=== PATIENT | female | born 1970 | race Caucasian/White ===

== ENCOUNTER 2022-02-13 19:09 | Inpatient (IN) | payer OTHER ==
[~2022-02-13] VITALS: Ht 160 cm; Wt 51.2 kg
[~2022-02-13 19:09] MED LIST: ATEN25 PO; Benadryl 50 mg50 MG PO; Betamethasone V15 G1 TP; Keflex500 MG PO; LORA1 PO; METO100ER PO; METPRE4DP PO; Norco 5-325 Ta1 EACH PO; RXHYDACE PO; RXPROM25 PO; TRAM50 PO
[2022-02-13 19:35] LABS: Calcium, Ionized (POC) 1.09 mmol/L (1.10-1.46); Chloride (POC) 99 mmol/L (98-108); Creatinine (POC) 2.7 mg/dL (0.6-1.0); Glucose (ISTAT POC) 203 mg/dL (70-99); Hemoglobin (POC) 20.1 g/dL (12.0-16.0); Potassium (POC) 5.1 mmol/L (3.5-5.5); Sodium (POC) 132 mmol/L (135-148); Total CO2 (POC) 21 mmol/L (21-32)
[2022-02-13 19:40] LABS: Hematocrit 52.7 % (33.0-51.0); Hemoglobin 18.7 g/dL (11.5-16.0); Mean Corpuscular HGB 37.1 pg (26.0-34.0); Mean Corpuscular HGB Conc 35.5 g/dL (31.5-36.5); Mean Corpuscular Volume 105 fL (80-100); Mean Platelet Volume 9.5 fL (9.1-12.4); Platelet Count 421 K/mm3 (150-400); RDW Coefficient Variation 12.3 % (11.7-14.2); Red Blood Cell Count 5.04 M/mm3 (3.80-5.20); White Blood Cell Count 26.17 K/mm3 (4.00-11.30)
[2022-02-13 19:59] LABS: Magnesium, Blood 2.3 mg/dL (1.6-2.4)
[2022-02-13 20:10] LABS: PCO2 Arterial 23.4 mmHg (35-45); pH Blood Arterial 7.41 (7.35-7.45)
[2022-02-13 20:11] LABS: PO2 Arterial 103 mmHg (80-100)
[2022-02-13 20:27] LABS: Albumin, Blood 3.9 g/dL (3.4-5.0); Albumin/Globulin Ratio 0.8 (0.8-1.8); Bilirubin, Total 0.6 mg/dL (0.1-1.0); Bun/Creatinine Ratio 19.9 (12.0-20.0); Calcium, Blood 9.8 mg/dL (8.5-10.1); Creatinine, Blood 2.31 mg/dL (0.40-1.00); Globulin, Blood 4.9 g/dL (2.2-4.0); Potassium, Blood 4.4 mmol/L (3.5-5.5); Total Protein, Blood 8.8 g/dL (6.4-8.2)
[2022-02-13 20:32] LABS: Influenza A, PCR NEGATIVE (NEGATIVE); Influenza B, PCR NEGATIVE (NEGATIVE); Resp Syncytial Virus, PCR NEGATIVE (NEGATIVE); SARS-Cov-2 (COVID-19) PCR, MMC NEGATIVE (NEGATIVE)
[2022-02-13 20:32] LABS: BASOPHILS PERCENT MAN 0 % (0-2); EOSINOPHILS PERCENT MAN 0 % (0-6); LYMPHOCYTES ABSOLUTE MAN 1.83 K/mm3 (0.84-5.20); LYMPHOCYTES PERCENT MAN 7 % (21-46); MONOCYTES ABSOLUTE MAN 1.04 K/mm3 (0.16-1.47); MONOCYTES PERCENT MAN 4 % (4-13); NEUTROPHILS ABSOLUTE MAN 23.29 K/mm3 (1.96-9.15); SEG NEUTROPHILS PERCENT MAN 89 % (41-73); TOTAL CELLS COUNTED 100
[2022-02-13 21:17] LABS: Ethanol (Alcohol), Blood, Med <3 mg/dL
[2022-02-13 22:28] LABS: Source, Urine Clean Catch
[2022-02-13 22:37] LABS: Appearance, Urine Cloudy (Clear); Blood, Urine 5+ (Neg); Color, Urine Amber (P-Yellow); Glucose Qualitative, Urine 1+ (Neg); Ketones, Urine 1+ (Neg); Leukocyte Esterase, Urine 2+ (Neg); Nitrite, Urine Pos (Neg); Protein, Urine 4+ (Neg); Urobilinogen, Urine 1+ (Normal)
[2022-02-13 22:52] LABS: U Amphetamine Screen Not Detected; U Barbituate Screen Not Detected; U Benzodiazapine Screen Not Detected; U Buprenorphine Screen Not Detected; U Cannabinoids Screen DETECTED; U Cocaine Screen Not Detected; U Methadone Screen Not Detected; U Methamphetamine Screen Not Detected; U Opiates Screen Not Detected; U Oxycodone Screen Not Detected; U Phencyclidine Screen Not Detected; U Propoxyphene Screen Not Detected
[2022-02-13 22:53] LABS: Bilirubin, Urine 1+ (Neg)
[2022-02-13 22:58] LABS: Amorphous Mod (0-Heavy); Granular Casts 0-2 /lpf (0)
[2022-02-13 22:59] LABS: International Normalized Ratio 0.99; Prothrombin Time Results 10.4 Sec (9.7-11.5)
[2022-02-13 22:59] LABS: Bacteria Many /hpf; Renal Epithelial Rare /hpf (0-Rare); Squamous Epithelial Cells Few /hpf (Few)
[2022-02-13 23:21] LABS: CHOL/HDL RATIO 3.8; Cholesterol 260 mg/dL (50-200); HDL Cholesterol 68 mg/dL (>39); LDL/HDL RATIO 2.1; Low Density Lipoprotein Chol 143 mg/dL (0-110); Triglycerides 246 mg/dL (30-160); Very Low Density Lipoprot Chol 49 mg/dL (6-32)
[2022-02-14 01:47] LABS: BASOPHILS ABSOLUTE AUTO 0.03 K/mm3 (0.00-0.23); BASOPHILS PERCENT AUTO 0 % (0-2); EOSINOPHILS ABSOLUTE AUTO 0.08 K/mm3 (0.00-0.68); EOSINOPHILS PERCENT AUTO 0 % (0-6); Hematocrit 44.9 % (33.0-51.0); Hemoglobin 16.6 g/dL (11.5-16.0); IMMATURE GRAN ABSOLUTE AUTO 0.12 K/mm3 (0.00-0.10); IMMATURE GRAN PERCENT AUTO 1 % (0-1); LYMPHOCYTES ABSOLUTE AUTO 1.22 K/mm3 (0.84-5.20); LYMPHOCYTES PERCENT AUTO 6 % (21-46); MONOCYTES ABSOLUTE AUTO 0.97 K/mm3 (0.16-1.47); MONOCYTES PERCENT AUTO 5 % (4-13); Mean Corpuscular HGB 37.6 pg (26.0-34.0); Mean Corpuscular Volume 102 fL (80-100); Mean Platelet Volume 9.3 fL (9.1-12.4); NEUTROPHILS ABSOLUTE AUTO 18.14 K/mm3 (1.96-9.15); NEUTROPHILS PERCENT AUTO 88 % (41-73); Platelet Count 289 K/mm3 (150-400); RDW Coefficient Variation 12.1 % (11.7-14.2); RDW Standard Deviation 45.8 fL (35.1-46.3); Red Blood Cell Count 4.41 M/mm3 (3.80-5.20); White Blood Cell Count 20.56 K/mm3 (4.00-11.30)
[2022-02-14 02:02] LABS: International Normalized Ratio 1.09; Prothrombin Time Results 11.4 Sec (9.7-11.5)
[2022-02-14 02:17] LABS: Albumin, Blood 3.3 g/dL (3.4-5.0); Albumin/Globulin Ratio 0.8 (0.8-1.8); Bilirubin, Total 0.4 mg/dL (0.1-1.0); Bun/Creatinine Ratio 24.3 (12.0-20.0); Calcium, Blood 8.8 mg/dL (8.5-10.1); Creatinine, Blood 2.14 mg/dL (0.40-1.00); Globulin, Blood 3.9 g/dL (2.2-4.0); Potassium, Blood 4.7 mmol/L (3.5-5.5); Total Protein, Blood 7.2 g/dL (6.4-8.2)
--- NOTE | 2022-02-14 04:15 | NUR ---
NO SIGNINFICANT EVENTS SINCE ADMIT. HEP GTT STARTED PER ORDER. VSS. NO CHEST PAIN OR PALPITATIONS. HR NOW IN THE 110S-120S.
--- NOTE | 2022-02-14 11:29 | NUR ---
AM NOTE: PT A&Ox4, COOPERATIVE W/CARE, ANSWERS QUESTIONS APPROPRIATELY. O2 SATS >92% ON RA, PT DENIES SOB AT REST. SIN TACH CONTINUES ON MONITOR W/RATE 100-120s AT REST, PT DENIES CHEST PAIN OR FEELINGS OF PALPITATIONS AT REST. HEP INFUSING PER ORDERS. DR SANCHES NOTIFIED OF CARDIOLOGY CONSULT, TO/FROM BEDSIDE. ECHO COMPLETED AT BEDSIDE. CIWA SCORES NEGATIVE THUS FAR. PT REPORTS 30 LB WEIGHT LOSS OVER THIS PAST YEAR R/TO STRESS F/THE LOSS OF FAMILY MEMBERS AND A FRIEND. BEDREST CONTINUES. REPORT GIVEN TO RAMSES FERNANDES TO ASSUME CARE OF PT.
--- NOTE | 2022-02-14 11:35 | NUR ---
ASSUMED CARE OF PT, REPORT FROM LONG PEARCE PT. REMAINS ALERT AND ORIENTED. REPOSITIONING SELF IN BED FOR COMFORT AT THIS TIME. CALL LIGHT IN REACH.
--- NOTE | 2022-02-14 12:59 | NUR ---
UP TO BEDSIDE CHAIR PT. UP TO BEDSIDE TOILET WITH STAND BY ASSIST. PT REPORTS FEELING STIFF BUT NO LONGER DIZZY. ABLE TO AMBULATE TO RECLINER. HR INCREASED TO 140S-150S WITH AMBULATION HOWEVER PT DENIES ANY CHEST PAIN OR PRESSURE AT THIS TIME. PAIN MEDICATION ADMIN PER PT REQUEST AND LUNCH TRAY PROVIDED WELL. PT. CALL LIGHT IN REACH, INSTRUCTED PT TO CALL BEFORE ATTEMPTING TO MOVE OUT OF RECLINER DUE TO LINES/ CORDS/ WEAKNESS AND FALL RISK. PT VERBALIZED UNDERSTANDING.
[2022-02-14 13:55] LABS: Adenovirus Not Detected (NOT DETECT); Bordetella pertussis Not Detected (NOT DETECT); Chlamydophila pneumoniae Not Detected (NOT DETECT); Coronavirus 229E Not Detected (NOT DETECT); Coronavirus HKU1 Not Detected (NOT DETECT); Coronavirus NL63 Not Detected (NOT DETECT); Coronavirus OC43 Not Detected (NOT DETECT); Human Metapneumovirus Not Detected (NOT DETECT); Human Rhinovirus/Enterovirus Not Detected (NOT DETECT); Influenza A/2009-H1 Not Detected (NOT DETECT); Influenza A/H1 Not Detected (NOT DETECT); Influenza A/H3 Not Detected (NOT DETECT); Influenza B Not Detected (NOT DETECT); Mycoplasma pneumoniae Not Detected (NOT DETECT); Parainfluenza Virus 1 Not Detected (NOT DETECT); Parainfluenza Virus 2 Not Detected (NOT DETECT); Parainfluenza Virus 3 Not Detected (NOT DETECT); Parainfluenza Virus 4 Not Detected (NOT DETECT); Respiratory Syncytial Virus Not Detected (NOT DETECT); SARS-Cov-2 (COVID-19), BioFire Not Detected (NOT DETECT)
--- NOTE | 2022-02-14 17:15 | NUR ---
PT TRANSFERRED TO PCU AT THIS TIME. ALL BELONGINGS TAKEN WITH PT. REPORT TO WOJCIECH PEARCE. VSS UPON TRANSFER.
--- NOTE | 2022-02-14 17:36 | NUR ---
ASSUMPTION OF CARE: PT ARRIVED TO UNIT AT 1715. ABLE TO TRANSFER VIA SBA FROM WHEELCHAIR TO BED. ALERT AND ORIENTED X4, ABLE TO FOLLOW COMMANDS AND MAKE NEEDS KNOWN, AFEBRILE, HR ST 120'S, BP SLIGHTLY ELEVATED 127/109, SATING >95% ON RA. RESPIRATIONS EVEN AND UNLABORED. DISCLORATION NOTED ON FINGERS AND TOES, PT STATES THIS IS BASELINE. HEPARING GTT @17 UNITS/KG/HR IN R. AC, NS GTT @100ML/HR GTT IN LICHA. PT ORIENTED TO CALL LIGHT SYSTEM. BED IN LOW, CALL LIGHT IN REACH, FAMILY AT BEDSIDE, WILL REPORT TO ONCOMING RN.
--- NOTE | 2022-02-15 02:05 | NUR ---
UPDATE PT HAVING INCREASE IN NAUSEA. HR INCREASING AND SUSTAINING IN 120'S-130'S ST. PHYSICIAN NOTIFIED. ORDERS PLACED PER PHYSICIAN. PLAN TO TREAT NAUSEA AT THIS TIME. WILL CONT TO MONITOR HR AND INFORM PHYSICIAN IF NO IMPROVEMENT AFTER NAUSEA MEDICATIONS GIVEN.
[2022-02-15 02:36] LABS: Hematocrit 38.3 % (33.0-51.0); Hemoglobin 13.6 g/dL (11.5-16.0); Mean Corpuscular HGB 37.7 pg (26.0-34.0); Mean Corpuscular HGB Conc 35.5 g/dL (31.5-36.5); Mean Corpuscular Volume 106 fL (80-100); Mean Platelet Volume 9.4 fL (9.1-12.4); Platelet Count 208 K/mm3 (150-400); Red Blood Cell Count 3.61 M/mm3 (3.80-5.20); White Blood Cell Count 12.78 K/mm3 (4.00-11.30)
[2022-02-15 03:03] LABS: Albumin, Blood 2.8 g/dL (3.4-5.0); Albumin/Globulin Ratio 0.9 (0.8-1.8); Bilirubin, Total 0.3 mg/dL (0.1-1.0); Bun/Creatinine Ratio 22.8 (12.0-20.0); Calcium, Blood 8.1 mg/dL (8.5-10.1); Creatinine, Blood 2.98 mg/dL (0.40-1.00); Globulin, Blood 3.2 g/dL (2.2-4.0); Potassium, Blood 4.2 mmol/L (3.5-5.5)
--- NOTE | 2022-02-15 05:48 | NUR ---
UPDATE DR. DEL RIO AT BEDSIDE TO ASSESS PT. PT CONT TO BE TACHYCARDIC IN 120'S TO 130'S. PT CURRENLTY IN SINUS TACH. PLAN TO CONT TO MONITOR AT THIS TIME. BP STABLE. PT REPORTS REGLAN IMPROVED NAUSEA. WILL CONT TO MONITOR.
--- NOTE | 2022-02-15 06:00 | NUR ---
SHIFT SUMMARY PT ALERT AND ORIENTED X 4. HR TACHYCARDIC, PHYSICIAN NOTIFIED,SEE NOTES. BP STABLE. CIWA NEGATIVE T/O SHIFT. PT ABLE TO TURN SELF IN BED NEEDED. NO CP OR PRESSURE. OXYGEN SATURATION MAINTAINED ABOVE 92% ON RA. CALL LIGHT WITHIN REACH. WILL CONT TO MONITOR UNTIL REPORT GIVEN TO DAYSHIFT RN.
--- NOTE | 2022-02-15 07:28 | NUR ---
Bedside report received from RAMSES Kirkpatrick. Pt is awake, alert and oriented. No c/o acute pain/discomfort at this time. She was just medicated for nausea as she vomited "bile-colored" liquid per report. She is lying on her right side in bed, in no apparent distress/discomfort at this time. Sinus tachycardia 121 bpm by telemetry monitoring.
--- NOTE | 2022-02-15 09:27 | NUR ---
5 mg IV metoprolol given for heart rate persistently 120 bpm, per Dr. Carrizales during rounding at this time. Heart rate remains sinus tachycardia, 112 bpm, blood pressure stable. PT reports no dizzyness, lightheadedness, no chest discomfort.
--- NOTE | 2022-02-15 11:40 | NUR ---
Pt was ambulatory in the room, to the bathroom, and sitting on side of bed with stable blood pressure, and heart rate 110-117. Continues to deny any symptoms. No c/o nausea, and no bowel movement for over 24 hours. GI panel order dc'd per protocol (over 24 hours without BM, DC order).
--- NOTE | 2022-02-15 12:26 | NUR ---
Pt has been ambulatory in the room, doing her toilette. She has been, she says, frustrated by the IV machine beeping when she bends her elbow so frequently. At this time, she is taking care of her hair, teeth, and clothing while standing at the bedside. IV machine is no longer beeping, but she is agitated and says that she wants it to be "fixed". I explained to her that I cannot disconnect the IVs as she is on continuous fluids and heparin gtt. I encouraged her to complete her self care, and we will take care of the machine alarms.
--- NOTE | 2022-02-15 13:17 | NUR ---
Pt is calm, cooperative, and no longer agitated. States that she was able to complete her toilette and has had enough to eat for lunch. She is sitting up in bed, male visitor at the bedside, talking with her. Informed them that lab would be drawing the labs around 2 pm. NS infusing at 100cc/hour right AC, and heparin gtt infusing left upper arm at 17 u/kg/hour. Vital signs taken, stable.
--- NOTE | 2022-02-15 14:17 | NUR ---
Pt has been having intermittent cyanosis of fingers and toes, and at this time she is also have cyanosis of her knees. She is requesting nicotine patch, which was given now. She is talking with the fiber worker via zoom call at this time.
[2022-02-15 16:50] LABS: Uric Acid, Blood 6.1 mg/dL (2.6-6.0)
--- NOTE | 2022-02-15 18:06 | NUR ---
Heparin gtt stopped at this time. NS continuous fluids were stopped about an hour ago. Pt states that she has nausea and abdominal pain when she took a sip of warm water. Asking for pain medication for a sore back and headache. Call to Dr. Carrizales for Tylenol orders.
[2022-02-15 18:07] LABS: Lactate Dehydrogenase (Ld),Bld 2268 U/L (100-240); Phosphorus, Blood 3.1 mg/dL (2.5-4.9)
[2022-02-15 18:08] LABS: CPK Creatine Kinase >20000 U/L (26-193)
[2022-02-15 18:57] LABS: Eosinophils-Raw #,Urine 0
[2022-02-16 04:40] LABS: Hematocrit 37.2 % (33.0-51.0); Hemoglobin 13.3 g/dL (11.5-16.0); Mean Corpuscular HGB 37.2 pg (26.0-34.0); Mean Corpuscular HGB Conc 35.8 g/dL (31.5-36.5); Mean Corpuscular Volume 104 fL (80-100); Mean Platelet Volume 9.7 fL (9.1-12.4); Platelet Count 268 K/mm3 (150-400); RDW Coefficient Variation 11.9 % (11.7-14.2); RDW Standard Deviation 45.2 fL (35.1-46.3); Red Blood Cell Count 3.58 M/mm3 (3.80-5.20); White Blood Cell Count 13.81 K/mm3 (4.00-11.30)
--- NOTE | 2022-02-16 04:51 | NUR ---
SHIFT SUMMARY PT IS A/Ox3-4 AND IS COOPERATIVE WITH CARE PROVIDED BY STAFF. PT HAS BEEN UP FOR MOST OF THE NIGHT WITH THE OCCASIONAL NAP NOTED T/O THE SHIFT. MAINTAINED SPO2 >94% ON RA WITH SOME SOB/DYSPNEA NOTED WITH ABULATION. PT RECOVERS QUICKLY HOWEVER. CARDIAC SHAIKH PT'S HR HAS REMAINED IN THE 110'S-120'S T/O MOST OF THE SHIFT. PRN METOPROLOL GIVEN ORDERED PER EMAR TO MANAGE HR. BP HAS BEEN STABLE. THE COLORATION OF PT'S FINGERS/TOES CONTINUE TO BE A BLUE/PURPLISH AT TIMES AND SOME DIGITS ARE TENDER TO PRESSURE. RADIAL AND PEDAL PULSES PRESENT IN THEIR RELATIVE EXTREMITIES WITH NO LOSS OF SENSATION OR TINGLING REPORTED BY THE PT. MD'S ARE MADE AWARE OF PT'S CONDITION, NO NEW ORDERS REGARDING THIS MATTER AT THIS TIME. PT STATS "SHAKING OUT MY HANDS TENDS TO HELP". VSS, NADN NOTED T/O THE SHIFT
[2022-02-16 05:04] LABS: Albumin, Blood 2.7 g/dL (3.4-5.0); Anion Gap 12 mmol/L (6-16); Blood Urea Nitrogen 70 mg/dL (8-24); Bun/Creatinine Ratio 24.2 (12.0-20.0); CO2, Blood 16 mmol/L (21-32); Calcium, Blood 8.7 mg/dL (8.5-10.1); Chloride, Blood 110 mmol/L (98-108); Creatinine, Blood 2.89 mg/dL (0.40-1.00); Glomerular Filtration Rate 19 (60-); Glucose, Blood 89 mg/dL (70-99); Phosphorus, Blood 3.4 mg/dL (2.5-4.9); Potassium, Blood 3.7 mmol/L (3.5-5.5); Sodium, Blood 138 mmol/L (136-145)
--- NOTE | 2022-02-16 07:30 | NUR ---
Sitting up in bed, states was up to bathroom about 4 am. she is presently short of breath, RR 25/min. spo2 90-92% on room air. Heart rate 121-124, sinus tachycardia. Blood pressure elevated. C/o fingers hurting, they are cyanotic, as has been the case since intermittently since her admission. Distal pulses palpable, mottling noted of her legs bilaterally.
--- NOTE | 2022-02-16 07:51 | NUR ---
Pt states that her breathing is better. She appears more relaxed now, on 2 l/min of oxygen and spo2 improved to 96%. RR is 22. Toprol XL given early due to hypertension and elevated heart rate.
[2022-02-16 08:09] LABS: COMPLEMENT C3, SERUM 87 mg/dL (82-167)
[2022-02-16 10:11] LABS: COMPLEMENT C3, SERUM 86 mg/dL (82-167); COMPLEMENT C4, SERUM 24 mg/dL (12-38)
--- NOTE | 2022-02-16 15:03 | NUR ---
Pt is anxious, states that she feels that she is 'chained to the bed'. She is bored in the room, and frequently asks to be disconnected from the IV fluids infusing continuously. Explained to the patient the reason for the infusion, for her kidney function to be treated and improve. She verbalized understanding, but is clearly unhappy about it.
--- NOTE | 2022-02-16 18:02 | NUR ---
2,3, 5 DIGITS OF BOTH HANDS ARE PURPLE, PAINFUL. Pt was given Tylenol at her request to "take the edge off". Also wrapped in warm blanket to reduce her discomfort, rated by her 8/10
[2022-02-16 19:10] LABS: ANTI-DSDNA ANTIBODIES <1 IU/mL (0-9); RNP ANTIBODIES <0.2 AI (0.0-0.9); SJOGREN'S ANTI-SS-A 0.4 AI (0.0-0.9); SJOGREN'S ANTI-SS-B <0.2 AI (0.0-0.9); SMITH ANTIBODIES <0.2 AI (0.0-0.9)
[2022-02-16 22:10] LABS: HBSAG SCREEN Negative (Negative); HCV AB 0.2 (0.0-0.9); HEP A AB, IGM Negative (Negative); HEP B CORE AB, IGM Negative (Negative)
--- NOTE | 2022-02-16 23:00 | NUR ---
UPDATE PT REPORTED HEARING "TWO CATS" IN HER ROOM LAST NIGHT. SHE ALSO STATED, "I CAUGHT ONE HERE UNDER THE BLANKET. CAN YOU HEAR HIM?". PT ALSO STATES SHE HEARD THE SAME CATS WHEN SHE WAS ADMITTED ON 02/13. ORIENTATION QUESTIONS WERE ASKED AND PT WAS A/Ox4. I OREINTATED THE PT AND EXPLAINED THERE WAS NO CATS IN THE ROOM, BUT PT VERBALIZED SHE WAS NOT FULLY CONVINCED OF THIS INFORMATION. I SHOWED PT THERE WAS NO CAT UNDER HER BLANKET AND AGAIN REASSURED THE PT THERE WAS NO CATS IN HER ROOM. THE PT WAS NOT AGITATED OR VOILENT IN ANYWAY.CHARGE NURSE ESHA NOTIFIED OF THE SITUATION AND SHE ADVISED PASSING THE INFORMATION ALONG TO DAY SHIFT. WILL CONTINUE TO MONITOR
--- NOTE | 2022-02-17 05:40 | NUR ---
SHIFT SUMMARY PT IS A/Ox3-4 AND IS COOPERATIVE WITH CARE PROVIDED BY STAFF. PT HAS BEEN UP FOR MOST OF THE NIGHT WITH THE OCCASIONAL NAP NOTED T/O THE SHIFT. MAINTAINED SPO2 >94% ON RA WITH SOME SOB/DYSPNEA NOTED WITH ABULATION. PT RECOVERS FAIRLY QUICKLY. CARDIAC SHAIKH, PT HAS MAINTAINED A HR IN THE 110'S WITH THE OCCATIONAL SPIKE INTO THE 130-140'S WITH AMBULATION. NO CP, PRESSURE, OR DIZZYNESS REPORTED BY THE PT DURING THESE EPISODES. THE COLORATION OF PT'S FINGERS/TOES CONTINUE TO BE A BLUE/PURPLISH AT TIMES AND SOME DIGITS ARE TENDER TO PRESSURE. RADIAL AND PEDAL PULSES PRESENT IN THEIR RELATIVE EXTREMITIES WITH NO LOSS OF SENSATION OR TINGLING REPORTED BY THE PT. PT STATES BLUE/PURPLISH AT TIMES AND SOME DIGITS ARE TENDER TO PRESSURE. RADIAL AND PEDAL PULSES PRESENT IN THEIR RELATIVE EXTREMITIES WITH NO LOSS OF SENSATION OR TINGLING REPORTED. PT HAS NOT HAD AN EPISODE OF NAUSEA LAST NIGHT, BUT DID THINK SHE WAS HEARING CATS IN HER ROOM. SEE UPDATE NOTED. VSS/NADN T/O THE SHIFT
[2022-02-17 08:50] LABS: BASOPHILS ABSOLUTE AUTO 0.02 K/mm3 (0.00-0.23); BASOPHILS PERCENT AUTO 0 % (0-2); EOSINOPHILS ABSOLUTE AUTO 0.22 K/mm3 (0.00-0.68); EOSINOPHILS PERCENT AUTO 2 % (0-6); Hematocrit 35.8 % (33.0-51.0); Hemoglobin 12.7 g/dL (11.5-16.0); IMMATURE GRAN ABSOLUTE AUTO 0.06 K/mm3 (0.00-0.10); IMMATURE GRAN PERCENT AUTO 1 % (0-1); LYMPHOCYTES ABSOLUTE AUTO 0.94 K/mm3 (0.84-5.20); LYMPHOCYTES PERCENT AUTO 9 % (21-46); MONOCYTES ABSOLUTE AUTO 1.03 K/mm3 (0.16-1.47); MONOCYTES PERCENT AUTO 10 % (4-13); Mean Corpuscular HGB 36.8 pg (26.0-34.0); Mean Corpuscular HGB Conc 35.5 g/dL (31.5-36.5); Mean Corpuscular Volume 104 fL (80-100); Mean Platelet Volume 9.5 fL (9.1-12.4); NEUTROPHILS ABSOLUTE AUTO 7.94 K/mm3 (1.96-9.15); NEUTROPHILS PERCENT AUTO 78 % (41-73); Platelet Count 291 K/mm3 (150-400); RDW Standard Deviation 45.4 fL (35.1-46.3); Red Blood Cell Count 3.45 M/mm3 (3.80-5.20); White Blood Cell Count 10.21 K/mm3 (4.00-11.30)
[2022-02-17 09:06] LABS: Albumin, Blood 2.6 g/dL (3.4-5.0); Albumin/Globulin Ratio 0.8 (0.8-1.8); Bilirubin, Total 0.3 mg/dL (0.1-1.0); Bun/Creatinine Ratio 23.4 (12.0-20.0); Calcium, Blood 8.4 mg/dL (8.5-10.1); Creatinine, Blood 2.48 mg/dL (0.40-1.00); Globulin, Blood 3.1 g/dL (2.2-4.0); Potassium, Blood 3.1 mmol/L (3.5-5.5); Total Protein, Blood 5.7 g/dL (6.4-8.2)
--- NOTE | 2022-02-17 10:49 | NUR ---
CARE ASSUMPTION THIS RN ASSUMED CARE AT 0700 FROM YURY PEARCE. VSS. TELE SINUSTACH. PATIENT IS ALERT AND ORIENTED X4. PATIENT IS HAVING HALLUCINATIONS. PATIENT IS SEEING CATS IN HER ROOM AND STATES THAT THE CATS ARE LIVING UNDER AND INSIDE HER BED. PATIENT STATES SHE CAN HEAR THEM PURING AND FELT THEM PEEING ON HER. PATIENT STATED HOW SHE WAS UPSET THAT SHE WAS TOLD SHE IS HALLUCINATING. THIS RN PROVIDED ACTIVE LISTENING AND THERPAUEITC COMMUNICATION WHICH SEEMED TO HELP THE PATIENT BECOME LESS IRRITABLE AND CALM AGAIN. COMPUTER LAB PARA PROFESSIONAL DISCUSSED DRINKING STATUS WITH THE PATIENT, AND PATIENT STATED SHE DRINKS 3-4 GLASSES OF WINE A DAY. MD WEISS INFORMED AND CIWA PROTCOL IN PLACE. CIWA WAS 6. SEE SHIFT ASSESSMENT AND CIWA SCREENING FOR MORE DETIALS. PATIENT HAD A SHOWER THIS AM AND WAS INDEPDENT IN ALL ADLS THIS AM. PLAN OF CARE IS UP TO DATE AND CALL LIGHT WITHIN REACH. WILL CONTINUE TO MONITOR AND PROVIDE CARE.
--- NOTE | 2022-02-17 13:21 | NUR ---
UPDATE PATIENT IS WANTING TO LEAVE TO GO HOME AND GRAB A BAG OF CLOTHES AND THEN COME BACK. THIS RN EDUCATED THE PATIENT THAT IT IS NOT SAFE FOR THE PATIENT TO BE DSICHARGED, SO WE CAN NOT ALLOW THE PATIENT TO LEAVE AND THEN COME BACK. THAT IF THE PATIENT LEFT IT WOULD BE AGAINST MEDICAL ADVICE AND SHE WOULD HAVE TO GO BACK INTO THE EMERGENCY ROOM AND BE READMITTED TO THE HOSPITAL. PATIENT IS IN ROOM CURRENTLY AND VERVBALIZED UNDERSTANDING OF THIS. CIWA SCORE 6.
[2022-02-17 16:10] LABS: A/G RATIO 1.2 (0.7-1.7); ALBUMIN 2.8 g/dL (2.9-4.4); ALPHA-1-GLOBULIN 0.2 g/dL (0.0-0.4); ALPHA-2-GLOBULIN 0.8 g/dL (0.4-1.0); BETA GLOBULIN 0.7 g/dL (0.7-1.3); GAMMA GLOBULIN 0.6 g/dL (0.4-1.8); GLOBULIN, TOTAL 2.3 g/dL (2.2-3.9); M-SPIKE Not Observed g/dL (Not Observed); PROTEIN, TOTAL, SERUM 5.1 g/dL (6.0-8.5)
--- NOTE | 2022-02-17 16:33 | NUR ---
UPDATE SEE PATIENT CIWA SCORE, AND MEDICATED PER CIWA. PATIENT IS LESS ANXIOUS AND AGITATED. PATIENT IS STILL HAVING HALLUCINATIONS. PATIENT WAS LOOKING AT HER PHONE CASE AND SAID IT WAS HER MOM AND COULD SEE HER MOM FROWNING. THIS RN ORIENTED HER TO HER PHONE CASE AND THAT HER MOM WASN'T IN THE ROOM. PATIENT WAS PLAYING WITH THE [employer] SAYING " I AM MAKING IT FOR THE BABIES OVER THERE". PATIENT HAS HAD MULTIPLE HALLUCINATIONS THROUGHOUT THE SHIFT. AND TRYING TO GET OUT OF BED. BED ALARM IS ON. THIS RN ORIENTED THE PATIENT TO WHERE SHE IS AT AND WHAT THE PLAN OF CARE. CALL LIGHT WITHIN REACH AND BED IN LOWEST POSITION WITH ALARM ON.
--- NOTE | 2022-02-17 18:24 | NUR ---
SHIFT SUMMARY PATIENT FRIEND STATED THAT SHE HAD CAT HALLUCINATIONS SINCE LAST SUNDAY. INFORMED MD WEISS. UPDATED SISTER ON CURRENT PLAN AND SITUATION. PATIENT KISSING IV MACHINE THINKING IT IS A BABY. NO ACUTE CHANGES SINCE PERVIOUS NOTE. CALL LIGHT WITHIN REACH. WILL CONTINUE TO PROVIDE CARE AND MONITOR UNTIL HAND OFF WITH NEXT SHIFT.
--- NOTE | 2022-02-17 21:17 | NUR ---
ASSUMED CARE AT 1900 PATIENT IS ALERT AND ORIENTED TO SELF ONLY. AGITATED AND HAVING AUDITORY AND VISUAL HALLUCINATIONS. ATTEMPTING TO GET OOB AND UNSTEADY GAIT, SHARYN VEST APPLIED. PATIENT VERY DIFFICULT TO REDIRECT AND PULLS AT CORDS. 02 SATS >93% ON RA. HR ST 110-120. BP STABLE. CIWA 13. CALL LIGHT IN REACH.
--- NOTE | 2022-02-18 02:32 | NUR ---
PATIENT PULLING AT SHARYN TO THE POINT IT IS RIPPING, PULLING OFF TELE. OFFERED TOILETING AND CHANGED SHEETS ON BED. UNABLE TO REDIRECT OR GET PATIENT TO FOLLOW COMMANDS. PATIENT BECOMES VERY AGITATED AND ANXIOUS WITH ANY CARE. CONTINUES TO HALLUCINATE AND ONLY ORIENTED TO SELF. PER DOCTOR ATIVAN FREQUENCY INCREASED AND SOFT BILATERAL WRIST RESTRAINTS APPLIED.
[2022-02-18 03:54] LABS: Hematocrit 33.6 % (33.0-51.0); Hemoglobin 12.2 g/dL (11.5-16.0); Mean Corpuscular HGB 37.8 pg (26.0-34.0); Mean Corpuscular HGB Conc 36.3 g/dL (31.5-36.5); Mean Corpuscular Volume 104 fL (80-100); Mean Platelet Volume 9.5 fL (9.1-12.4); Platelet Count 347 K/mm3 (150-400); RDW Coefficient Variation 12.3 % (11.7-14.2); RDW Standard Deviation 46.8 fL (35.1-46.3); Red Blood Cell Count 3.23 M/mm3 (3.80-5.20); White Blood Cell Count 11.51 K/mm3 (4.00-11.30)
[2022-02-18 04:13] LABS: Albumin, Blood 2.7 g/dL (3.4-5.0); Albumin/Globulin Ratio 0.8 (0.8-1.8); Bilirubin, Total 0.3 mg/dL (0.1-1.0); Bun/Creatinine Ratio 23.7 (12.0-20.0); Calcium, Blood 8.7 mg/dL (8.5-10.1); Creatinine, Blood 2.28 mg/dL (0.40-1.00); Globulin, Blood 3.3 g/dL (2.2-4.0); Potassium, Blood 3.4 mmol/L (3.5-5.5)
--- NOTE | 2022-02-18 05:26 | NUR ---
SHIFT SUMMARY PATIENT REMAINS CONFUSED, HALLUCINATING AND ORIENTED TO SELF ONLY. AGITATED AND ANXIOUS WITH CARE, YELLS AND PULLS AT THINGS. REFUSES TO TAKE PO MEDICATIONS. MEDICATED PER EMAR WITH ATIVAN. 02 SATS >93% ON RA, WAS ON 4L VIA NC FOR APPROX 2 HOURS. LS COARSE THIS AM, CALLED DR AND FLUIDS DISCONTINUED FOR THE MOMENT. HR ST 112. BP STABLE. UP TO BEDSIDE COMMODE TO WITH 3 PERSON ASSIST. PATIENT REPOSITIONS SELF. CALL LIGHT IN REACH.
[2022-02-18 11:09] LABS: Base Excess Venous -14.6 mmol/L; Bicarbonate Venous 13.8 mmol/L (24.0-30.0); PCO2 Venous 25.7 mmHg (38-42)
[2022-02-18 11:10] LABS: pH Blood Venous 7.28 (7.34-7.37)
[2022-02-18 11:56] LABS: Ketones, Urine 2+ (Neg)
--- NOTE | 2022-02-18 12:20 | NUR ---
Recheck on CBG 297 after pt was able to drink apple juice and had and amp of d50
[2022-02-18 12:24] LABS: U Benzodiazapine Screen DETECTED; U Cannabinoids Screen DETECTED
[2022-02-18 12:25] LABS: U Amphetamine Screen Not Detected; U Barbituate Screen Not Detected; U Buprenorphine Screen Not Detected; U Cocaine Screen Not Detected; U Methadone Screen Not Detected; U Methamphetamine Screen Not Detected; U Opiates Screen Not Detected; U Oxycodone Screen Not Detected; U Phencyclidine Screen Not Detected; U Propoxyphene Screen Not Detected
[2022-02-18 13:09] LABS: CPK Creatine Kinase 6639 U/L (26-193)
[2022-02-18 14:00] LABS: Source, Urine Foley catheter
[2022-02-18 14:03] LABS: Osmolality, Serum 324 mos/KG (275-300)
[2022-02-18 14:05] LABS: Bilirubin, Urine Neg (Neg); Blood, Urine 3+ (Neg); Color, Urine Yellow (P-Yellow); Glucose Qualitative, Urine 3+ (Neg); Ketones, Urine 2+ (Neg); Leukocyte Esterase, Urine Neg (Neg); Nitrite, Urine Neg (Neg); Protein, Urine Neg (Neg); Urobilinogen, Urine NORM (Normal)
--- NOTE | 2022-02-18 14:39 | NUR ---
AM NOTES: PT RESTLESS IN BED PULLING ON LINES, RESTRAINTS, CORDS AND TUBINGS, ATTEMPTING TO GET OUT OF BED, ONLY ALERT TO SELF. CIWA IS AT 19, MEDICATED WITH ATIVAN 2MG PRN. PT NOT FOLLOWING COMMANDS REFUSED TO TAKE PO MEDS. VITALS HRR ST 110-130'S, METOPROLOL IV 5MG GIVEN X1 FOR HEART RATE, SBP ELEVATED 130-160'S, SATS WAS ABOVE 90% ON RA AT THE BEGINNING OF THE SHIFT, WHEN PT WAS STARTED ON SODIUM BICARB GTT PT STARTED DESATTING TO 84% EVEN WITH 4L OF O2 VIA REGULAR NASAL CANNULA PT C/O SOB LUNGS SOUNDED WET AND CRACKLY DR SLADE MADE AWARE ORDER FOR 40MG ONE TIME DOSE OF LASIX AND SODIUM BICARB 1 AMP. RALPH WAS PLACED PT KEEPS TAKING ATTENDS OFF WETTING THE BED OFTEN AND ALSO FOR STRICT I&O'S REASON. MULTIPLE LABS ORDERED VBG WITH PH OF 7.28, CBG WAS LOW AT 51 WAS GIVEN 1 SYRNGE OF D50 AND 2 APPLEJUICE CBG WENT UP TO 297. CHEST XRAY WAS DONE WELL POSITIVE FOR PLEURALEFFUSION/EDEMA. POISON CONTROL ALSO GATHERED INFORMATION REGARDING LAB ORDERED FOR AMATOXIN PROVIDER MADE AWARE TO CALL POISON CONTROL FOR FURTHER INFORMATION ABOUT THE TEST. PT IN BED RIGHT NOW ON OXYMIZER 6L OF O2, SIGNIFICANT OTHER AT THE BEDSIDE. SISTER CALLED AND WAS GIVEN UPDATE REGARDING THE PT. WILL CONTINUE TO MONITOR
[2022-02-18 14:48] LABS: Appearance, Urine Hazy (Clear)
[2022-02-18 14:49] LABS: Red Blood Cells, Urine 0-2 /hpf (0-2); Squamous Epithelial Cells Many /hpf (Few); White Blood Cells, Urine 0-2 /hpf (0-5)
[2022-02-18 14:50] LABS: Amorphous Light (0-Heavy); Bacteria Mod /hpf
[2022-02-18 15:14] LABS: Base Excess Venous -8.3 mmol/L; Bicarbonate Venous 17.6 mmol/L (24.0-30.0); PCO2 Venous 33.1 mmHg (38-42); pH Blood Venous 7.33 (7.34-7.37)
--- NOTE | 2022-02-18 17:51 | NUR ---
PT SUMMARY: SEE AM NOTES. PT BREATHING WAS BETTER AFTER THE ONE TIME DOSE OF LASIX SATS KEPT ABOVE 95% ON 4L OF O2 VIA OXYMIZER. PT HAD 1L URINE OUTPUT SUNIL CLEAR IN COLOR. PT WAS MEDICATED ATLEAST 3 TIMES WITH ATIVAN FOR AGITATION, SHARYN VEST REMAINED IN PLACE. BLOOD SUGARS RUNNING LOW AGAIN BY THE END OF THE SHIFT CBG WAS 39 D50 WAS GIVEN AND WENT UP TO 239. PT IS NOW Q2 CHECKS FOR CBG. PT NOW RESTING IN BED, BED ALARM ON FOR SAFETY, BED IN LOWEST POSITION CALL LIGHTS IN REACH, WILL REPORT TO ONCOMING SHIFT
--- NOTE | 2022-02-19 01:01 | NUR ---
ASSUMED CARE ASSUMED CARE AT 1900. PT A/O TO SELF ONLY. ABLE TO TRACK NURSE AND NOD YES/NO. PT SQUEEZED HANDS AND MOVED FEET ON COMMAND. WILL MOUTH WORDS AND MOAN OUT. PT ON 4L OXYMIZER. ST 110'S. VSS. SHARYN VEST IN PLACE D/T CONFUSION AND ATTEMPTING TO GET OOB. Q2 CBG CHECKED ON EAR LOBES D/T POOR PREFUSION TO HANDS. RALPH PATENT AND DRAINING TO GRAVITY. APPROX 0030. CALL MADE TO DR SOLIMAN REGARDING STABLE CBG. ORDER RECEIVED TO CHANGE CBG CHECKS TO Q4.
[2022-02-19 03:34] LABS: BASOPHILS ABSOLUTE AUTO 0.03 K/mm3 (0.00-0.23); BASOPHILS PERCENT AUTO 0 % (0-2); EOSINOPHILS ABSOLUTE AUTO 0.14 K/mm3 (0.00-0.68); EOSINOPHILS PERCENT AUTO 1 % (0-6); Hematocrit 29.7 % (33.0-51.0); Hemoglobin 10.7 g/dL (11.5-16.0); IMMATURE GRAN ABSOLUTE AUTO 0.04 K/mm3 (0.00-0.10); IMMATURE GRAN PERCENT AUTO 0 % (0-1); LYMPHOCYTES ABSOLUTE AUTO 1.02 K/mm3 (0.84-5.20); LYMPHOCYTES PERCENT AUTO 10 % (21-46); MONOCYTES ABSOLUTE AUTO 1.39 K/mm3 (0.16-1.47); MONOCYTES PERCENT AUTO 14 % (4-13); Mean Corpuscular Volume 103 fL (80-100); Mean Platelet Volume 9.5 fL (9.1-12.4); NEUTROPHILS ABSOLUTE AUTO 7.25 K/mm3 (1.96-9.15); NEUTROPHILS PERCENT AUTO 74 % (41-73); Platelet Count 370 K/mm3 (150-400); RDW Coefficient Variation 12.4 % (11.7-14.2); RDW Standard Deviation 46.2 fL (35.1-46.3); Red Blood Cell Count 2.89 M/mm3 (3.80-5.20); White Blood Cell Count 9.87 K/mm3 (4.00-11.30)
[2022-02-19 04:17] LABS: Albumin, Blood 2.4 g/dL (3.4-5.0); Albumin/Globulin Ratio 0.8 (0.8-1.8); Bilirubin, Total 0.4 mg/dL (0.1-1.0); Bun/Creatinine Ratio 21.6 (12.0-20.0); Calcium, Blood 8.5 mg/dL (8.5-10.1); Creatinine, Blood 2.13 mg/dL (0.40-1.00); Potassium, Blood 3.2 mmol/L (3.5-5.5); Total Protein, Blood 5.4 g/dL (6.4-8.2)
--- NOTE | 2022-02-19 06:24 | NUR ---
SHIFT SUMMARY PT NEURO STATUS IMPROVED T/O NIGHT. PT NOW ABLE TO HAVE FULL CONVERSATIONS, SITTING UP IN BED W/O ASSISTANCE, AND IS CALM/COOPERATIVE. NO ATIVAN GIVEN THIS SHIFT. VSS. PT ON RA, SPO2 GREATER THAN 90%. CBG REMAINS STABLE. RALPH PATENT AND DRAINING TO GRAVITY. CALL MADE TO DR SOLIMAN REGARDING AM LABS. ORDERS RECEIVED.
--- NOTE | 2022-02-19 16:08 | NUR ---
PT TRANSFERRED TO MEDICAL FLOOR RM 346 REPORT GIVEN TO KAITLYN PEARCE. PT'S MENTATION HAS IMPROVED TODAY PT WAS ABLE TO ANSWER QUESTIONS APPROPRIATELY ABLE TO STATE NAME JB, KNOWS SHE'S AT [facility], KNOWS THE YEAR AND MONTH. BLOOD SUGAR WAS MAINTAINED ABOVE 100 TODAY PT DIET WAS RESUMED, NO GREAT APPETITE BUT ATLEAST ATE 30% OF MEALS TODAY. PT C/O HEADACHE TYLENOL WAS GIVEN AND WAS EFFECTIVE. VITALS HRR 90-110'S, SBP 120-160'S PT STARTED ON AMLODIPINE, SATS ABOVE 95% ON RA, AFEBRILE. RALPH DDRAINING CLEAR URINE VIA GRAVITY. RESTRAINT WAS DISCONTINUED AT 1400 BED ALARM ON FOR SAFETY, PT SAT ON THE SIDE OF THE BED TO EAT LUNCH. SON CAME IN THIS AFTERNOON TO VISIT. WAS GIVEN UPDATE REGARDING PT'S STATUS. ALL BELONGINGS SENT WITH THE PT.
--- NOTE | 2022-02-19 17:15 | NUR ---
SHIFT SUMMARY PT AXO X4, PLEASANT AND COOPERATIVE WITH CARE THOUGH WITHDRAWN AND SPEAKS QUIETLY. PT TRANSFERRED FROM PCU, ARRIVED AT 1528 VIA BED. 2 RN SKIN CHECK WITH ONEL BRIDGES RN AT TIME OF THIS NURSE'S ASSESSMENT. PULSE OF 106 AND BP OF 141/102 NOTED. CIWA ASSESSED AT 1557 ON 02/19/22, SCORE OF 6. PT MEDICATED FOR HEADACHE PER EMAR. PT SLEEPING COMFORTABLY AT THIS TIME. BED IN LOW POSITION, CALL LIGHT WITHIN REACH.
--- NOTE | 2022-02-20 01:48 | NUR ---
SHIFT SUMMARY; PATIENT VERY SLOW TO RESPOND TO VERBAL STIMULI. SHE WILL HOLD HER PILLS IN HER HAND UNTIL YOU PLACE THEM IN HER MOUTH FOR HER. SHE SLEEPS THROUGH PHONE RINGING NEXT TO HER BED. HER CIWA SCORE IS 4. SHE TAKES HER PILLS WHOLE WITH WATER. HER VITAL SIGNS SHOW AN ELEVATED DIASTOLIC BLOOD PRESSURE GREATER THAN 100. SHE DENIES ANY CP OR PRESSURE. HER RESPIRATIONS ARE 30 WHEN SHE IS SLEEPING. SHE HAS A SLIGHT BLUISH TINT TO HER SKIN WHICH PER REPORT IS NOT DARK IT WAS ON ADMIT. SHE IS ORIENTED TO PERSON AND PLACE AT THIS TIME. VERY SLOW TO ANSWER QUESTIONS.
[2022-02-20 03:33] LABS: PCO2 Arterial 25.9 mmHg (35-45); PO2 Arterial 51.1 mmHg (80-100); pH Blood Arterial 7.45 (7.35-7.45)
[2022-02-20 06:16] LABS: Base Excess Venous -5.3 mmol/L; Bicarbonate Venous 21.2 mmol/L (24.0-30.0); PCO2 Venous 24.8 mmHg (38-42); pH Blood Venous 7.48 (7.34-7.37)
[2022-02-20 06:31] LABS: BASOPHILS ABSOLUTE AUTO 0.04 K/mm3 (0.00-0.23); BASOPHILS PERCENT AUTO 0 % (0-2); EOSINOPHILS ABSOLUTE AUTO 0.45 K/mm3 (0.00-0.68); EOSINOPHILS PERCENT AUTO 4 % (0-6); Hematocrit 31.7 % (33.0-51.0); Hemoglobin 11.4 g/dL (11.5-16.0); IMMATURE GRAN ABSOLUTE AUTO 0.09 K/mm3 (0.00-0.10); IMMATURE GRAN PERCENT AUTO 1 % (0-1); LYMPHOCYTES ABSOLUTE AUTO 1.05 K/mm3 (0.84-5.20); LYMPHOCYTES PERCENT AUTO 8 % (21-46); MONOCYTES ABSOLUTE AUTO 1.58 K/mm3 (0.16-1.47); MONOCYTES PERCENT AUTO 13 % (4-13); Mean Corpuscular HGB 37.3 pg (26.0-34.0); Mean Corpuscular Volume 104 fL (80-100); Mean Platelet Volume 9.7 fL (9.1-12.4); NEUTROPHILS ABSOLUTE AUTO 9.45 K/mm3 (1.96-9.15); NEUTROPHILS PERCENT AUTO 75 % (41-73); Platelet Count 413 K/mm3 (150-400); RDW Coefficient Variation 12.9 % (11.7-14.2); RDW Standard Deviation 48.2 fL (35.1-46.3); Red Blood Cell Count 3.06 M/mm3 (3.80-5.20); White Blood Cell Count 12.66 K/mm3 (4.00-11.30)
[2022-02-20 06:56] LABS: Albumin, Blood 2.7 g/dL (3.4-5.0); Albumin/Globulin Ratio 0.9 (0.8-1.8); Bilirubin, Total 0.5 mg/dL (0.1-1.0); Bun/Creatinine Ratio 19.6 (12.0-20.0); Calcium, Blood 8.4 mg/dL (8.5-10.1); Creatinine, Blood 1.79 mg/dL (0.40-1.00); Globulin, Blood 3.1 g/dL (2.2-4.0); Phosphorus, Blood 2.2 mg/dL (2.5-4.9); Potassium, Blood 3.2 mmol/L (3.5-5.5); Total Protein, Blood 5.8 g/dL (6.4-8.2)
[2022-02-20 13:11] LABS: ANTIMYELOPEROXIDASE (MPO) ABS <0.2 units (0.0-0.9); ANTIPROTEINASE 3 (PR-3) ABS <0.2 units (0.0-0.9); ATYPICAL PANCA <1:20 titer (Neg:<1:20); CYTOPLASMIC (C-ANCA) <1:20 titer (Neg:<1:20); PERINUCLEAR (P-ANCA) <1:20 titer (Neg:<1:20)
--- NOTE | 2022-02-20 16:36 | NUR ---
PATIENT IS ALERT AND ORIENTED AND COOPERATIVE WITH CARE. SPEAKS QUIETLY AND SLOWLY. C/O PAIN IN HER FINGERS FROM RAYNAUDS PHENOMENON. DR. ARVIZU NOTIFIED OF THIS AND HE SAID HE WILL LOOK IN TO TREATING THE PAIN. NO S/S OF RESPIRATORY DISTRESS THIS SHIFT. RALPH IN PLACE PATENT AND DRAINING. PATIENT'S NEIGHBOR VISITED TODAY. PATIENT WORKED WITH PT. SHE WAS 1 PERSON SBA TO THE CHAIR. SHE SAT UP FOR LUNCH. SHE STATES SHE IS VERY TIRED, HAS SLEPT ON AND OFF THROUGHOUT THE DAY. POWERGLIDE LICHA. HTN MEDICATED PER EMAR. DR. ARVIZU INCREASED METOPROLOL FOR TOMORROW. PATIENT STATES HER LAST DRINK WAS ON 02/12/22. SHE STATES THAT SHE DRINKS WINE, 1-2 GLASSES A DAY AND SOME DAYS SHE DOESNT DRINK ANYTHING. STATES SHE DOESNT TAKE ANY ILLECIT SUBSTANCES. PATIENT WILL BE TRANSFERRING TO ROOM 328 TODAY. WILL CONTINUE TO MONITOR
--- NOTE | 2022-02-20 18:45 | NUR ---
RECEIVED REPORT FROM GALLO OCLÓN RN. PATIENT TRANSFERRED FROM RM 346 TO ROOM 328 VIA HOSPITAL BED AT AROUND 1715. NO NEW CHANGES CHANGES WITH PT CONDITION. A&OX4, BUT SLOW TO RESPOND. RALPH PATENT DRAINING TO GRAVITY WITH YELLOW URINE. BED ALARM ON FOR SAFETY AND CALL LIGHT IN REACH.
--- NOTE | 2022-02-20 19:35 | NUR ---
THE PATIENT IS A 51 YEAR-OLD FEMALE WITH A DIAGNOSIS OF SEPSIS. A&OX4. SLOW, QUIET SPEECH. PATIENT EFFECTIVELY COMMUNICATES NEEDS. CALL LIGHT WITHIN REACH. BED LOW AND LOCKED. VSS. BP 147/111, WHICH IS CONSISTENT WITH TREND THROUGHOUT HOSPITALIZATION. PATIENT DENIES PAIN. RALPH CATHETER WELL-DRAINING. NO ACUTE SIGNS OR SYMPTOMS AT THIS TIME. WILL CONTINUE TO CLOSELY MONITOR.
--- NOTE | 2022-02-21 03:07 | NUR ---
THIS RN WAS ON A LUNCH BREAK WHEN PATIENT STARTED TO COMPLAIN OF SOB. AMY VALDES, RN, OBTAINED AN O2 READING OF 78%. PATIENT WAS PLACED ON 3L. THIS RN ASSESSED PATIENT AND NOTED CLEAR LS THROUGHOUT ALL LUNG CANTOR. O2 98% ON 3L. PATIENT REPORTS IMPROVED SOB. DR. RIVERA NOTIFIED BY THIS RN OF RESPIRATORY CHANGES WELL BP 162/118, HR 104. PRN HYDRALAZINE AND CXR ORDERED. PATIENT MEDICATED PER EMAR. WILL CONTINUE TO CLOSELY MONITOR.
--- NOTE | 2022-02-21 03:57 | NUR ---
DRIED YEAST SUPERVISOR SUMMARY THE PATIENT IS A 51 YEAR-OLD FEMALE WITH A DIAGNOSIS OF SEVERE SEPSIS. TRANSFER FROM PCU ON 02/20. A&OX4. PATIENT EFFECITVELY COMMUNICATES NEEDS AND APPROPRIATELY USES CALL LIGHT. BED LOW AND LOCKED. CALL LIGHT WITHIN REACH. VITAL SIGNS REVEAL HYPERTENSION SBP 162, AND TACHYCARDIA HR 111. THE PATIENT ALSO REPORTED AN ONSET OF SOB. AMY VALDES RN, OBTAINED AN O2 READING OF 77% RA. THE PATIENT WAS PLACED ON 3L. DR. SOLIMAN WAS NOTIFIED OF THIS. PRN HYDRALAZINE AND PORTABLE CXR ORDERED. REFER TO EMAR FOR FURTHER DETAILS. THE PATIENT REPORTS IMPROVED SOB, O2 98%. RALPH CATHETER WELL-DRAINING. WILL CONTINUE TO CLOSELY MONITOR.
[2022-02-21 07:32] LABS: Base Excess Venous -1.6 mmol/L; Bicarbonate Venous 24.1 mmol/L (24.0-30.0); PCO2 Venous 25.2 mmHg (38-42); pH Blood Venous 7.53 (7.34-7.37)
[2022-02-21 07:54] LABS: Albumin, Blood 2.4 g/dL (3.4-5.0); Anion Gap 8 mmol/L (6-16); Blood Urea Nitrogen 25 mg/dL (8-24); CO2, Blood 21 mmol/L (21-32); Calcium, Blood 8.1 mg/dL (8.5-10.1); Chloride, Blood 115 mmol/L (98-108); Creatinine, Blood 1.47 mg/dL (0.40-1.00); Glomerular Filtration Rate 43 (60-); Glucose, Blood 95 mg/dL (70-99); Phosphorus, Blood 2.3 mg/dL (2.5-4.9); Potassium, Blood 2.9 mmol/L (3.5-5.5); Sodium, Blood 144 mmol/L (136-145)
[2022-02-21 14:02] LABS: Base Excess Venous -1.2 mmol/L; Bicarbonate Venous 24.5 mmol/L (24.0-30.0); PCO2 Venous 25.5 mmHg (38-42); pH Blood Venous 7.53 (7.34-7.37)
--- NOTE | 2022-02-21 17:10 | NUR ---
SHIFT SUMMARY: PATIENT ALERT AND ORIENTED X4. PT WAS WEAK AND LETHARGIC THIS MORNING. HAS BEEN MORE ALERT AND TALKATIVE THROUGHOUT THE DAY. PT WENT DOWN FOR MRI AWAITING RESULTS. RALPH IN PLACE AND DRAINING W/O ISSUES. POWERLGIDE PATENT AND FLUSHING. PT HAD A LOW POTASSIUM OF 2.9 THIS AM. PROVIDED 2 DOSES OF 40MEQ. PATIENT TOLERATED WELL. PT HAD CRITICAL VBG PH OF 7.53. CALLED DR. ARVIZU WHO STATED TO HOLD BICARB. CALL LIGHT IN REACH. BED IN LOWEST POSITION. WILL CONTINUE TO MONITOR.
--- NOTE | 2022-02-21 19:40 | NUR ---
THE PATIENT IS A 51 YEAR-OLD FEMALE WITH A DIAGNOSIS OF SEVERE SEPSIS. A&OX4. PATIENT EFFECTIVELY COMMUNICATES NEEDS AND APPROPRIATELY USES CALL LIGHT. STAND-BY ASSIST. BED LOW AND LOCKED. VSS. BP IMPROVED SIGNIFICANTLY COMPARED TO EARLIER THIS MORNING. PATIENT IS SATURAING WELL ON RA AND DENIES SOB. NO REPORTS OF PAIN AT THIS TIME. NO ACUTE SIGNS OR SYMPTOMS. THIS RN WILL CONTINUE TO CLOSELY MONITOR.
--- NOTE | 2022-02-21 22:37 | NUR ---
CAN STRIPER SUMMARY THE PATIENT IS A 51 YEAR-OLD FEMALE WITH A DIAGNOSIS OF SEVERE SEPSIS. A&OX4. PATIENT EFFECTIVELY COMMUNICATES NEEDS AND APPROPRIATELY USES CALL LIGHT. VSS. O2 >90% ON RA. RR EVEN AND UNLABORED. PATIENT DENIES PAIN AT THIS TIME. STAND-BY ASSIST. BED LOW AND LOCKED. MINIMAL APPETITE. PATIENT MAINTAINING GOOD FLUID INTAKE AND OUTPUT. RALPH CATHETER WELL-DRAINING TO GRAVITY. PATIENT APPEARS TO HAVE MORE ENERGY COMPARED TO YESTERDAY, 02/20. PATIENT CONFIRMS THIS BY REPORTING TO FEEL "SLIGHTLY BETTER". NO ACUTE SIGNS OR SYMPTOMS. THIS RN WILL CONTINUE TO CLOSELY MONITOR.
[2022-02-22 09:42] LABS: Base Excess Venous -0.6 mmol/L; PCO2 Venous 34.9 mmHg (38-42); pH Blood Venous 7.44 (7.34-7.37)
[2022-02-22 09:49] LABS: Albumin, Blood 2.4 g/dL (3.4-5.0); Anion Gap 6 mmol/L (6-16); Blood Urea Nitrogen 17 mg/dL (8-24); Bun/Creatinine Ratio 13.4 (12.0-20.0); CO2, Blood 24 mmol/L (21-32); Calcium, Blood 8.3 mg/dL (8.5-10.1); Chloride, Blood 113 mmol/L (98-108); Creatinine, Blood 1.27 mg/dL (0.40-1.00); Glomerular Filtration Rate 51 (60-); Glucose, Blood 119 mg/dL (70-99); Phosphorus, Blood 2.7 mg/dL (2.5-4.9); Potassium, Blood 3.6 mmol/L (3.5-5.5); Sodium, Blood 143 mmol/L (136-145)
[2022-02-22] MEDS ORDERED: AMLO5 PO (10:57)
[2022-02-22] MEDS ORDERED: Prinivil10 MG PO (10:57)
[2022-02-22] MEDS ORDERED: METO100ER PO (10:57)
[2022-02-22] MEDS ORDERED: HYDCHL25 PO (10:58)
[2022-02-22] MEDS ORDERED: Nicoderm Cq1 EAC1 TOP (10:58)
[2022-02-22] MEDS ORDERED: POTA10T PO (10:59)
--- NOTE | 2022-02-22 12:58 | NUR ---
DISCHARGE PATIENT TRANSPORTED VIA WHEELCHAIR TO [facility]. DISCHARGE INSTRUCTIONS EXPLAINED TO PATIENT. PATIENT STATED UNDERSTANDING. PACKET SENT WITH PATIENT. POWERGLIDE REMOVED WITHOUT DIFFICULTY. RALPH REMOVED WITHOUT DIFFICULTY. PATIENT VOIDED AFTER REMOVAL WITHOUT ISSUE. FOLLOW UP APPOINTMENT MADE WITH DR. OSPINA, PCP. PATIENT AWARE OF APPOINTMENT. CASE MANAGEMENT CONSULTED WITH PATIENT PRIOR TO DISCHARGE, SEE NOTES. MEDICATIONS FAXED TO PREFERRED PHARMACY.
[2022-02-22 13:10] LABS: M-SPIKE, % Not Observed % (Not Observed); PROTEIN,TOTAL,URINE 74.6 mg/dL (Not Estab.)
[2022-02-27 14:11] LABS: CARBOXY-THC 130 (.)
== END 2022-02-22 13:20 | disposition home or self-care (01) | DRG 865 ==
LOC: ER 19:09 → ICUW 23:14 → MEDS 23:14 → PCU 23:14 → ICUE 23:15 → PCU 02-14 17:22 → MEDS 02-19 15:24
PROVIDERS: Emergency Medicine; Internal Medicine; Internal Medicine Nephrology; ADMIT Family Medicine
DX: B34.9 Viral infection, unspecified (principal); G92.8 Other toxic encephalopathy; I21.A1 Myocardial infarction type 2; I63.81 Other cerebral infarction due to occlusion or stenosis of small artery; I67.83 Posterior reversible encephalopathy syndrome; N17.9 Acute kidney failure, unspecified; E87.20 Acidosis, unspecified; F10.231 Alcohol dependence with withdrawal delirium; M62.82 Rhabdomyolysis; E87.3 Alkalosis; I42.0 Dilated cardiomyopathy; I42.7 Cardiomyopathy due to drug and external agent; E87.1 Hypo-osmolality and hyponatremia; I10 Essential (primary) hypertension; K70.10 Alcoholic hepatitis without ascites; F32.A Depression, unspecified; R06.4 Hyperventilation; E87.6 Hypokalemia; E16.2 Hypoglycemia, unspecified; D75.839 Thrombocytosis, unspecified; B96.89 Other specified bacterial agents as the cause of diseases classified elsewhere; F17.210 Nicotine dependence, cigarettes, uncomplicated; R73.9 Hyperglycemia, unspecified; F12.10 Cannabis abuse, uncomplicated; R63.4 Abnormal weight loss; E86.0 Dehydration; R74.01 Elevation of levels of liver transaminase levels; L81.9 Disorder of pigmentation, unspecified; Z20.822 Contact with and (suspected) exposure to COVID-19; Z86.79 Personal history of other diseases of the circulatory system; Z98.890 Other specified postprocedural states; Z90.710 Acquired absence of both cervix and uterus; Z88.0 Allergy status to penicillin
CPT/HCPCS: 0202U; 0241U; 36415; 36600; 70553; 71045; 74176; 80047; 80053; 80061; 80069; 80074; 81001; 81003; 82140; 82550; 82570; 82607; 82746; 82803; 82947; 83036; 83516; 83520; 83605; 83615; 83690; 83735; 83930; 84100; 84145; 84156; 84165; 84166; 84443; 84484; 84550; 85014; 85025; 85027; 85520; 85610; 85651; 86037; 86060; 86140; 86160; 86225; 86235; 86430; 87040; 87086; 87205; 93005; 93010; 93306; 96361; 96374; 97110; 97162; 99285-25; A9270; A9579; C1751; G0480; J0360; J0696; J1644; J1650; J1940; J2060; J2405; J2765; J3010; J3411; J3480; J7030; J7050